=== PATIENT | female | born 1955 | race Caucasian/White ===

== ENCOUNTER → 2020-10-18 | Outpatient (CLI) | payer BC, OTHER | LOC: SJCVCIMAG 12:04 | PROVIDERS: ATTEND Internal Medicine | DX: R94.31 Abnormal electrocardiogram [ECG] [EKG] (principal); I25.9 Chronic ischemic heart disease, unspecified; R07.89 Other chest pain; R06.00 Dyspnea, unspecified; R78.5 Finding of other psychotropic drug in blood ==

== ENCOUNTER → 2020-10-20 | Outpatient (CLI) | payer BC, OTHER | LOC: LAB 14:47 | PROVIDERS: ATTEND Internal Medicine | DX: Z01.812 Encounter for preprocedural laboratory examination (principal); Z20.822 Contact with and (suspected) exposure to COVID-19 ==

== ENCOUNTER → 2020-10-24 | Outpatient (CLI) | payer BC, OTHER ==
[~2020-10-24] VITALS: Ht 167.6 cm; Wt 75.4 kg
[~2020-10-24] MED LIST: ASCORBIC ACID PO; ASPIRIN EC81 M1 PO; B COMPLEX1 EACH PO; CLONAZEPAM 0.50.5 M1 PO; CYMBALTA30 MG PO; GLUCOSAMINE CH1 EAC1 PO; IMDUR 30 MG TAB30 M1 PO; MULTIPLE VITAM1 EACH PO; REPATHA SU140 MG/1 M SUBQ; SYNTHROID100 MC1 PO; VITAMIN D31 ML PO
[2020-10-24 07:14] VITALS: BP 117/55
--- NOTE | 2020-10-24 09:16 | CATHLAB ---
[facility] [place] [address] INVASIVE PROCEDURE REPORT Name: MARILY CASEY Room #: REG HERRERA Gene#: [id number] Admission: 10/24/20 Attend Phys: Jin Muse MD, Discharge: Date of : 59 Report #: [id number] THIS REPORT FOR: cc: RICHARD ALVAREZ MD, OSSAMA MD Lundgren, Craig H. MD [facility] ~ APPROVED REPORT Study performed: 10/24/2020 07:59:00 Patient Details Patient Status: Out-Patient Room #: The patient is a 64 year-old female Event Personnel Jin Muse Psychologist Engineering, Lolis Guillaume RN RN, Lyla Erwin RN RN, Sherry Rush RTR, RADIOACTIVITY TECHNICIAN Monitor, Ron Del Real RTR Scrub Procedures Performed Art Access - R femoral artery* Left Heart Cath w/or w/o Coronaries [id number] [facility] [address]409 Initial Mod Sed Same Phys/QHP Gr5y 128507 51202 Mod Sed Same Phys/QHP Ea [id number] Hemostasis w/ Mynx Indication Dyspnea, Chest pain Procedure Narrative The patient was brought electively to the Cardiac Catheterization Laboratory and was prepped and draped in a sterile manner. The Right Groin^ was infiltrated with 1% Lidocaine subcutaneous anesthesia. A PINNACLE 6FR Sheath #[id number] sheath was inserted into the RFA^. Coronary angiography was performed using coronary diagnostic catheters. The right coronary system was accessed and visualized with a JR4 catheter. The left coronary system was accessed and visualized with a JL4 catheter. The left ventricle was accessed and visualized with a ANGLED PIGTAIL catheter. Left ventricular/Aortic Valve gradient assessed via catheter pullback. Left ventriculogram was performed in 30 degree projection. Closure device was deployed with a 6 Fr MYNXGRIP 6/7F #[id number]. The patient tolerated the procedure well and there were no complications associated with the procedure. There was no hematoma. Intraoperative Conscious Sedation [facility] [address] [place] [address] INVASIVE PROCEDURE REPORT Name: JACINTOMARILY Melinda Room #: [facility]#: [id number] Admission: 10/24/20 Attend Phys: Jin Muse, Discharge: Date of : 59 Report #: [id number] Sedation start time: 08:17 Case end Time: 08:43 Fentanyl 50 mcg Versed 1 mg Fluoro Time: 1.49 minutes Dose: DAP 2066.00 cGycm2 248 mGy Contrast Type and Amount: Omnipaque 100 ml Coronary Angiography The patient's coronary anatomy is right dominant. Diagnostic Cath Left Main Normal left main LAD Normal left anterior descending Diagonal 1 Normal, single diagonal branch Circumflex Large, nondominant circumflex comprised of a single marginal branch. Normal OM1 Normal first marginal branch Right Coronary Normal, dominant right coronary R PDA Normal posterior descending RPLV Normal posterior lateral branch Left Ventriculography The left ventricle is normal in size with normal contractility. The left ventricular ejection fraction is estimated to be 60-65%. Left ventricular wall motion abnormalities are not present. There is no mitral insufficiency. Hemodynamics The aortic pressure is 128/55 mmHg with a mean of 83 mmHg. The left ventricular pressure is 126/7 mmHg with a mean of mmHg. The left ventricular end diastolic pressure is 17 mmHg. Conclusion 1. Normal global and regional left ventricular systolic function. EF 65% 2. Normal left main 3. Normal coronary vasculature. Right coronary dominant circulation <ELECTRONICALLY SIGNED> By: Jin Muse MD, FACC 10/24/20914 4 4 Jin Muse MD, FACC /INF
== END | disposition home or self-care (01) ==
LOC: CATH 06:31
PROVIDERS: ATTEND Internal Medicine
DX: R07.9 Chest pain, unspecified (principal); R06.00 Dyspnea, unspecified; E78.5 Hyperlipidemia, unspecified; E03.9 Hypothyroidism, unspecified; G43.909 Migraine, unspecified, not intractable, without status migrainosus; F32.9 Major depressive disorder, single episode, unspecified; F41.9 Anxiety disorder, unspecified; Z98.890 Other specified postprocedural states; Z79.899 Other long term (current) drug therapy; Z87.891 Personal history of nicotine dependence